=== PATIENT | female | born 1995 | race Caucasian/White ===

== ENCOUNTER 2023-02-17 09:22 | Outpatient (CLI) | payer BC, MEDICAID, SELFPAY | END 2023-02-17 09:23 | disposition home or self-care (01) | PROVIDERS: Visit Provider Physician Assistant | DX: Z01.419 Encounter for gynecological examination (general) (routine) without abnormal findings (principal); R53.83 Other fatigue; R11.0 Nausea | CPT/HCPCS: 80053; 82306; 84443 ==

== ENCOUNTER 2024-07-17 09:13 | Outpatient (CLI) | payer BC, SELFPAY ==
[2024-07-19 06:27] LABS: HPV Source Cervix; HPV, High Risk by TMA Not Detected
== END 2024-07-17 09:14 | disposition home or self-care (01) ==
PROVIDERS: Visit Provider Physician Assistant
DX: R10.2 Pelvic and perineal pain (principal); N94.6 Dysmenorrhea, unspecified; R82.90 Unspecified abnormal findings in urine; Z12.4 Encounter for screening for malignant neoplasm of cervix; Z11.51 Encounter for screening for human papillomavirus (HPV); Z11.59 Encounter for screening for other viral diseases; Z11.4 Encounter for screening for human immunodeficiency virus [HIV]; Z13.6 Encounter for screening for cardiovascular disorders; Z13.228 Encounter for screening for other metabolic disorders
CPT/HCPCS: 80053; 80061; 84443; 86592; 86703; 86803; 87086; 87340; 87491; 87591; 87624; 87625; 88141; 88142

== ENCOUNTER 2024-07-19 08:10 | Outpatient (CLI) | payer BC, SELFPAY | END 2024-07-19 08:11 | disposition home or self-care (01) | LOC: NFLDREF 07-22 13:29 | PROVIDERS: Visit Provider Physician Assistant | DX: Z11.3 Encounter for screening for infections with a predominantly sexual mode of transmission (principal); R10.2 Pelvic and perineal pain | CPT/HCPCS: 87491; 87591 ==

== ENCOUNTER 2024-07-19 08:16 | Outpatient (CLI) | payer BC, SELFPAY ==
--- NOTE | 2024-07-19 08:15 | CRLHL7_ITS ---
For Patients: As a result of the Century Cures Act, medical imaging exams and procedure reports are released immediately into your electronic medical record. You may view this report before your referring provider. If you have questions, please contact your health care provider. CLINICAL HISTORY: Left sided pelvic pain for 2 months TECHNIQUE: 2D lara scale ultrasound. In addition color Doppler and spectral Doppler analysis was performed of the pelvis using a transabdominal and transvaginal approach. FINDINGS: The myometrium has a normal uniform echotexture. The uterus measures 8.2 x 3.0 x 4.8 cm. The endometrial lining appears normal and measures 7.5 mm in thickness. The right ovary measures 2.6 x 1.1 x 1.7 cm in size and the left ovary measures 2.3 x 1.3 x 1.3 cm. The ovaries demonstrate normal arterial and venous blood flow on color Doppler and spectral Doppler analysis. There are no suspicious fluid collections within the cul-de-sac. IMPRESSION: Normal uterus and ovaries. No torsion or excess pelvic free fluid. Dictated by Andrea Dao MD @ 07/20/2024 8:03:59 AM (Electronically Signed)
== END 2024-07-19 08:17 | disposition home or self-care (01) ==
LOC: US 08:17
PROVIDERS: Visit Provider Physician Assistant
DX: R10.2 Pelvic and perineal pain (principal)
CPT/HCPCS: 76830; 76856; 93976